=== PATIENT | female | born 1950 | race African-American/Black ===

== ENCOUNTER → 2016-06-30 | Day surgery (SDC) | payer OTHER ==
[~2016-06-30] VITALS: Ht 167.6 cm; Wt 86.2 kg
[~2016-06-30] MED LIST: ALEVE220 MG PO; Depo-Medrol 80mg Vial IARTIC ONE
--- NOTE | 2016-06-30 08:49 | Short Stay Surgery H&P ---
History of Present Illness History of Present Illness Chief Complaint Lower back pain. HPI Sarah Souza is a 66 year old female who was admitted on for Lumbosacral Spondylosis. Patient History Allergies: Coded Allergies: No Known Allergies (Unverified , 06/30/16) PAST MEDICAL HISTORY: (1) Lumbosacral spondylosis Past Surgeries: Social History: Patient History Narrative The patient was involved in a slip and fall accident in August of 2012 and has had chronic pain ever since. She has failed conservative treatment such as physical therapy and medication. She is here for her first diagnostic facet injections. Review of Systems Cardiovascular: Denies: CABG, CAD - stable, CHF, [place], angina, dysrhythmia, hypertension, no symptoms, other, peripheral vascular disease, rheumatic heart disease, see HPI, source of infx - skin, source of infx-indw cath, source of infx-prosthesis, valvular disease Respiratory: Denies: COPD, CPAP, URI, asthma, chronic bronchitis, home 02, no symptoms, other, pneumonia, see HPI, sleep apnea, tuberculosis Skeletal: Reports: osteroarthritis, spinal disc disease, trauma Gastrointestinal: Denies: gastro esophageal reflux disease, hepatitis A,B,C, hiatal hernia, jaundice, no symptoms, obesity, other, peptic ulcer disease, see HPI Genitourinary: Denies: BPH, UTI, dialysis, endstage renal disease, no symptoms , other, renal insufficiency, see HPI, urinary retention Neurologic: Denies: neuro muscular disease, neuropathy, no symptoms, other, see HPI, seizure, stroke/TIA Endocrine: Denies: diabetes - type 1, diabetes - type 2, no symptoms, other, post menopausal, see HPI, thyroid Hematologic: Denies: anemia, coagulopathy, no symptoms, other, prior transfusion, see HPI Physical Exam Skin: normal HENT: abnormal Heart: normal Lungs: normal Abdomen: normal Extremities: abnormal Genitourinary: normal Plan Plan of Care Right L4-5 and L5-S1 intra articular facet injections under fluoroscopic guidance. Preop Interventions Rest, heat, ice, anti inflammatory medication, rehab, pain medication, surgery, physical therapy. Summary of Findings Lumbosacral spondylosis Final Diagnosis: (1) Lumbosacral spondylosis Attestation Are the patient's medical conditions optimized for surgery? Attestation Response: yes TARIK THOMPSON M.D. Jun 30, 2016 08:49
--- NOTE | 2016-06-30 08:52 | Pre-Procedure Note/Attestation ---
Pre-Procedure Note/Attestation Complete Prior to Procedure Planned Procedure: left Procedure Narrative: L4-5 and L5-S1 intra articular facet injections under fluoroscopic guidance. Indications for Procedure Pre-Operative Diagnosis: lumbosacral spondylosis. Attestation I attest that I discussed the nature of the procedure; its benefits; risks and complications; and alternatives (and the risks and benefits of such alternatives ), prior to the procedure, with the patient (or the patient's legal sales representative electric service). I attest that, if there was a reasonable possibility of needing a blood transfusion, the patient (or the patient's legal sales representative electric service) was given the [facility] standardized written summary, pursuant to the Marcos [place]ude Blood Safety Act ([place] Health and Safety Code # 1645, as amended). I attest that I re-evaluated the patient just prior to the surgery and that there has been no change in the patient's H&P, except as documented below: TARIK THOMPSON M.D. Jun 30, 2016 08:52
[2016-06-30 09:03] VITALS: BP 142/87
[2016-06-30 09:25] VITALS: BP 149/95
--- NOTE | 2016-06-30 10:26 | Brief Operative Note ---
Immediate Post Operative Note Operative Note Chief Complaint: right lower back pain Pre-op Diagnosis: lumbosacral spondylosis. Procedure: Right L4-L5 and L5-S1 intra articular facet injections under fluoroscopic guidance. Post-op Diagnosis: same Post-op Diagnosis: same as pre-op Findings: consistent w/pre-op dx studies Surgeon: Tarik Thompson MD Sr. Vendor Management Associate: none Additional Surgeons: none Anesthesiologist: none Anesthesia: local Specimen: none Complications: none Condition: stable Fluids: none Estimated Blood Loss: none Drains: none Packing: none Tourniquet time: 0 - min Implant(s) used?: No TARIK THOMPSON M.D. Jun 30, 2016 10:25
--- NOTE | 2016-06-30 10:30 | Discharge Summary ---
Discharge Summary Hospital Course Date of Admission 06/30/2016 Date of Discharge 06/30/2016 Admitting Diagnosis lumbosacral spondylosis Reason for Hospitalization: short stay HPI Sarah Souza is a 66 year old female who was admitted on for Lumbosacral Spondylosis Consultations none Procedures Right L4-L5 and L5-S1 intra articular facet injections Hospital Course short stay Discharge Condition Upon Discharge: stable Discharge Disposition Patient was discharged to home. Discharge Diagnoses: (1) Lumbosacral spondylosis Discharge Instructions Discharge Instructions Follow up with: Dr. Thompson Diet: regular Activity: okay to shower For Surgical Patients Dressing Care: may change May shower: Yes Contact your physician for: bleeding, pain, tenderness, redness, swelling, yellowish discharge in the op. site TARIK THOMPSON M.D. Jun 30, 2016 10:30
--- NOTE | 2016-07-06 14:35 | Operative Note - PDOC ---
Operative Note Operative Note Date of Operation/Procedure: Jun 30, 2016 Chief Complaint: right lower back pain Pre-op Diagnosis: lumbosacral spondylosis. Procedure: Right L4-L5 and L5-S1 intra articular facet injections under fluoroscopic guidance. Post-op Diagnosis: same Post-op Diagnosis: same as pre-op Operative Findings: consistent w/pre-op dx studies Surgeon: Tarik Thompson MD Tap Builder: none Additional Surgeons: none Anesthesiologist: none Anesthesia: local Specimen: none Complications: none Condition: stable Fluids: none Estimated Blood Loss: none Drains: none Packing: none Tourniquet time: 0 - min Implant(s) used?: No Indications for Procedure The patient was involved in a slip and fall accident, which required emergency surgery. She has had chronic neck and lower back pain since and has failed conservative treatment on her lower back. She is complaining of right lower back pain and is here for her first set of facet injections of the right L4-L5 and L5-S1 joints. Description of Procedure The patient was seen and identified in the preoperative area. Risks, benefits, complications, and alternatives were discussed with the patient. The patient agreed to proceed with the procedure and signed the consent. The patient was placed in the prone position, and lumbosacral area was prepped with betadine and draped in the usual sterile fashion. Critical pause was taken. Using right oblique fluoroscopy, the right L4-L5 and L5-S1 facet joints were identified, and skin and deeper tissues were anesthetized with 1% lidocaine. We used 25- gauge 3.5-inch spinal needles for the procedure. The first needle was guided intraarticularly by fluoroscopy to the L4-L5 joint. The second needle was guided intraarticularly by fluoroscopy to the L5-S1 joint. Tip position was confirmed on lateral fluoroscopy. After negative aspiration of CSF and blood with no paresthesias, 0.5mL of Isoview was injected illustrating excellent arthrogram. Again after negative aspiration of CSF and blood with no paresthesias, 1 mL of a block solution was injected. Block solution contained 80 mg of Depo-Medrol and 1 mL of 1% preservative-free lidocaine.The needles were removed, skin was cleansed, and bandages were applied. The patient tolerated the procedure well without complications, and was discharged from recovery room after meeting discharge. Follow up: Post procedure VAS was /10. Facet loading was negative. The patient will follow up in one week. TARIK THOMPSON M.D. Jul 06, 2016 14:35
== END | disposition home or self-care (01) ==
LOC: SUR 08:23
DX: M47.897 Other spondylosis, lumbosacral region (principal); M19.90 Unspecified osteoarthritis, unspecified site
CPT/HCPCS: 64493; 64494; J1040; Q9967; 64483; 64484

== ENCOUNTER → 2016-09-22 | Day surgery (SDC) | payer OTHER ==
[~2016-09-22] VITALS: Ht 170.2 cm; Wt 86.6 kg
[2016-09-22 08:52] VITALS: BP 125/70
--- NOTE | 2016-09-22 09:17 | Short Stay Surgery H&P ---
History of Present Illness History of Present Illness Chief Complaint Right lower back pain HPI Sarah Souza is a 66 year old female who was admitted on for Lumbosacral Spondylosis Patient History Allergies: Coded Allergies: No Known Allergies (Unverified , 06/30/16) PAST MEDICAL HISTORY: (1) Lumbosacral spondylosis Past Surgeries: Social History: Patient History Narrative DOI 09/17/2012 Slip and fall at [employer]. She has had surgery and multiple therapy sessions. She also had a set of facet injections which helped reduce her pain by a significant amount and improve her function. Medication History Scheduled PRN Naproxen Sodium (Aleve), 220 MG PO Q12HR PRN for For Pain, (Reported) Review of Systems Cardiovascular: Denies: CABG, CAD - stable, CHF, [place], angina, dysrhythmia, hypertension, no symptoms, other, peripheral vascular disease, rheumatic heart disease, see HPI, source of infx - skin, source of infx-indw cath, source of infx-prosthesis, valvular disease Respiratory: Denies: COPD, CPAP, URI, asthma, chronic bronchitis, home 02, no symptoms, other, pneumonia, see HPI, sleep apnea, tuberculosis Skeletal: Reports: spinal disc disease, trauma Gastrointestinal: Denies: gastro esophageal reflux disease, hepatitis A,B,C, hiatal hernia, jaundice, no symptoms, obesity, other, peptic ulcer disease, see HPI Genitourinary: Denies: BPH, UTI, dialysis, endstage renal disease, no symptoms , other, renal insufficiency, see HPI, urinary retention Neurologic: Denies: neuro muscular disease, neuropathy, no symptoms, other, see HPI, seizure, stroke/TIA Endocrine: Denies: diabetes - type 1, diabetes - type 2, no symptoms, other, post menopausal, see HPI, thyroid Hematologic: Denies: anemia, coagulopathy, no symptoms, other, prior transfusion, see HPI Physical Exam Vital Signs Last Vital Signs Date Time Temp Pulse Resp B/P Pulse Ox O2 Delivery O2 Flow Rate FiO2 09/22/16 08:52 97.9 64 18 125/70 99 Room Air Skin: normal HENT: normal Heart: normal Lungs: normal Abdomen: normal Extremities: normal Genitourinary: normal Plan Plan of Care Right L4-L5 and L5-S1 intra-articular facet injection under fluoroscopic guidance. Preop Interventions rest, heat, ice, physical therapy, surgery, facet injections. Summary of Findings lumbosacral spondylosis Final Diagnosis: (1) Lumbosacral spondylosis Attestation Are the patient's medical conditions optimized for surgery? Attestation Response: yes TARIK THOMPSON M.D. Sep 22, 2016 09:17
--- NOTE | 2016-09-22 09:18 | Pre-Procedure Note/Attestation ---
Pre-Procedure Note/Attestation Complete Prior to Procedure Planned Procedure: right Procedure Narrative: L4-L5 and L5-S1 intra articular facet injections Indications for Procedure Pre-Operative Diagnosis: Lumbosacral spondylosis Attestation I attest that I discussed the nature of the procedure; its benefits; risks and complications; and alternatives (and the risks and benefits of such alternatives ), prior to the procedure, with the patient (or the patient's legal client services representative). I attest that, if there was a reasonable possibility of needing a blood transfusion, the patient (or the patient's legal client services representative) was given the [facility] standardized written summary, pursuant to the Marcos [place] Blood Safety Act ([place] Health and Safety Code # 1645, as amended). I attest that I re-evaluated the patient just prior to the surgery and that there has been no change in the patient's H&P, except as documented below: TARIK THOMPSON M.D. Sep 22, 2016 09:18
[2016-09-22 10:05] VITALS: BP 130/72
--- NOTE | 2016-09-22 10:08 | Brief Operative Note ---
Immediate Post Operative Note Operative Note Chief Complaint: Right lower back pain Pre-op Diagnosis: Lumbosacral spondylosis Procedure: Left L4-L5 and L5-S1 intra articular facet injections under fluoroscopic guidance. Post-op Diagnosis: lumbosacral spondylosis Post-op Diagnosis: same as pre-op Findings: consistent w/pre-op dx studies Surgeon: Tarik Thompson MD Sanitation Lead: none Additional Surgeons: none Anesthesiologist: none Anesthesia: local Specimen: none Complications: none Condition: stable Fluids: none Estimated Blood Loss: none Drains: none Packing: none Tourniquet time: 0 Implant(s) used?: No TARIK THOMPSON M.D. Sep 22, 2016 10:08
--- NOTE | 2016-09-22 10:10 | Discharge Summary ---
Discharge Summary Hospital Course Date of Admission 09/22/16 Date of Discharge 09/22/16 Admitting Diagnosis lumbosacral spondylosis Reason for Hospitalization: short stay HPI Sarah Souza is a 66 year old female who was admitted on for Lumbosacral Spondylosis Consultations none Procedures Right L4-L5 and L5-S1 intra articular facet injection under fluoroscopic guidance. Hospital Course short stay Discharge Condition Upon Discharge: stable Discharge Disposition Patient was discharged to home. Discharge Diagnoses: (1) Lumbosacral spondylosis Discharge Instructions Discharge Instructions Follow up with: Dr. Tarik Thompson Diet: regular Activity: okay to shower For Surgical Patients Dressing Care: may change May shower: Yes Contact your physician for: bleeding, pain, tenderness, redness, swelling, yellowish discharge in the op. site TARIK THOMPSON M.D. Sep 22, 2016 10:10
--- NOTE | 2016-09-22 17:58 | Operative Note - PDOC ---
Operative Note Operative Note Date of Operation/Procedure: Sep 22, 2016 Chief Complaint: Right lower back pain Pre-op Diagnosis: Lumbosacral spondylosis Procedure: Right L4-L5 and L5-S1 intra articular facet injections under fluoroscopic guidance. Post-op Diagnosis: lumbosacral spondylosis Post-op Diagnosis: same as pre-op Operative Findings: consistent w/pre-op dx studies Surgeon: Tarik Thompson MD Behavioral Health Worker: none Additional Surgeons: none Anesthesiologist: none Anesthesia: local Specimen: none Complications: none Condition: stable Fluids: none Estimated Blood Loss: none Drains: none Packing: none Tourniquet time: 0 Implant(s) used?: No Indications for Procedure DOI 09/17/2012. The patient was involved in a slip and fall accident requiring emergency surgery. She has had right lower back pain since and underwent her first set of facet injections with a decrease in her overall pain. She is here for her second set of facet injections. Description of Procedure The patient was seen and identified in the preoperative area. Risks, benefits, complications, and alternatives were discussed with the patient. The patient agreed to proceed with the procedure and signed the consent. The patient was placed in the prone position, and lumbosacral area was prepped with betadine and draped in the usual sterile fashion. Critical pause was taken. Using right oblique fluoroscopy, the right L4-L5 and L5-S1 facet joints were identified, and skin and deeper tissues were anesthetized with 1% lidocaine. We used 25-gauge 3.5-inch spinal needles for the procedure. The first needle was guided intra-articularly by fluoroscopy to the L4-L5 joint. The second needle was guided intra-articularly by fluoroscopy to the L5-S1 joint. Tip position was confirmed on lateral fluoroscopy. After negative aspiration of CSF and blood with no paresthesias, 1 mL of Isoview M300 was injected illustrating excellent arthrogram. Again after negative aspiration of CSF and blood with no paresthesias, 1 mL of a block solution was injected. Block solution contained 80 mg of Depo-Medrol and 1 mL of 1 % preservative-free lidocaine. The needles were removed, skin was cleansed, and bandages were applied. The patient tolerated the procedure well without complications, and was discharged from recovery room after meeting discharge. Follow up: Post procedure VAS was 0/10. Facet loading was negative. The patient will follow up in one week. A pain diary was given to the patient. TARIK THOMPSON M.D. Sep 22, 2016 17:58
== END | disposition home or self-care (01) ==
LOC: SDS 08:16
DX: M47.897 Other spondylosis, lumbosacral region (principal)
CPT/HCPCS: 64493; 64494; J1040; Q9967; 64483; 64484

== ENCOUNTER 2017-04-27 05:35 | Inpatient (IN) | payer OTHER ==
[2017-04-27] VITALS (12 sets, daily range): BP systolic 98–141; BP diastolic 60–77
[~2017-04-27] VITALS: Ht 167.6 cm; Wt 89.4 kg
[~2017-04-27 05:35] MED LIST changes: -Depo-Medrol 80mg Vial IARTIC ONE
[2017-04-27] MEDS ORDERED: Pantoprazole Inj IVP ONE (06:00)
[2017-04-27] MEDS ORDERED: Vancomycin 1 GM in D5W 275 ML IVPB ONE (06:00)
[2017-04-27] MEDS ORDERED: Thrombin 5000 units TOPIC ONE ×2 (07:09→11:08)
[2017-04-27] MEDS ORDERED: Bacitracin Oint 15gm Tube TOPIC ONE (07:10)
[2017-04-27] MEDS ORDERED: Bupivacaine w/Epi 0.75% 30ml Vial INJ ONE (07:10)
[2017-04-27] MEDS ORDERED: Thrombin 5000 units spray kit TOPIC ONE (07:10)
[2017-04-27] MEDS ORDERED: Gelfoam Absorbable 1gm powder pkt TOPIC ONE (07:10)
[2017-04-27] MEDS ORDERED: Bacitracin 50000 Units Vial ONE (07:10)
[2017-04-27] MEDS ORDERED: Vancomycin 1gm inj IVPB ONE (07:18)
[2017-04-27] MEDS ORDERED: Succinylcholine 20mg/ml 10ml vial ONE (07:30)
[2017-04-27] MEDS ORDERED: LR 1000ml ONE (07:30)
[2017-04-27] MEDS ORDERED: Zemuron 50mg/5ml Inj IV ONE (07:30)
[2017-04-27] MEDS ORDERED: Propofol 200mg/20ml IV ONE ×2 (07:30→09:38)
[2017-04-27] MEDS ORDERED: Midazolam 2mg/2ml Inj ONE (07:30)
[2017-04-27] MEDS ORDERED: NS Irrig 1000ml ONE (07:30)
[2017-04-27] MEDS ORDERED: Neostigmine 1mg/ml 10ml Inj ONE (07:30)
[2017-04-27] MEDS ORDERED: Dexamethasone 4mg/ml vial ONE (07:30)
[2017-04-27] MEDS ORDERED: Glycopyrrolate 0.2mg/ml 1ml Vial ONE (07:30)
[2017-04-27] MEDS ORDERED: fentaNYL 100 mcg/2 mL IV ONE (07:30)
[2017-04-27] MEDS ORDERED: Ketorolac 30mg Inj ONE (07:30)
[2017-04-27] MEDS ORDERED: Morphine Sulfate 10mg/ml Inj ONE (07:30)
[2017-04-27] MEDS ORDERED: Sterile Water Irrig 1000ml IRRIG ONE (07:30)
--- NOTE | 2017-04-27 07:45 | Pre-Procedure Note/Attestation ---
Pre-Procedure Note/Attestation Complete Prior to Procedure Planned Procedure: bilateral Procedure Narrative: Posterior lumbar decompressive surgery, bilateral at L3-4 and L4-5 and Right L5- S1, with instrumented interspinous fusion at L4-5 and posterolateral fusion with allograft, autograft and iliac crest bone marrow aspirate at L4-5 Attestation I attest that I discussed the nature of the procedure; its benefits; risks and complications; and alternatives (and the risks and benefits of such alternatives ), prior to the procedure, with the patient (or the patient's legal outside medical sales representative). I attest that, if there was a reasonable possibility of needing a blood transfusion, the patient (or the patient's legal outside medical sales representative) was given the [place] [facility] standardized written summary, pursuant to the Marcos [place] Blood Safety Act ([place] Health and Safety Code # 1645, as amended). I attest that I re-evaluated the patient just prior to the surgery and that there has been no change in the patient's H&P, except as documented below: TOM VILLAREAL Apr 27, 2017 07:45
--- NOTE | 2017-04-27 07:45 | Pre-Procedure Note/Attestation ---
Pre-Procedure Note/Attestation Complete Prior to Procedure Planned Procedure: bilateral Procedure Narrative: Posterior lumbar decompressive surgery, bilateral at L3-4 and L4-5 and Right L5- S1, with instrumented interspinous fusion at L4-5 and posterolateral fusion with allograft, autograft and iliac crest bone marrow aspirate at L4-5 Attestation I attest that I discussed the nature of the procedure; its benefits; risks and complications; and alternatives (and the risks and benefits of such alternatives ), prior to the procedure, with the patient (or the patient's legal loan representative). I attest that, if there was a reasonable possibility of needing a blood transfusion, the patient (or the patient's legal loan representative) was given the [place] [facility] standardized written summary, pursuant to the Marcos [place] Blood Safety Act ([place] Health and Safety Code # 1645, as amended). I attest that I re-evaluated the patient just prior to the surgery and that there has been no change in the patient's H&P, except as documented below: TOM VILLAREAL Apr 27, 2017 07:45
--- NOTE | 2017-04-27 07:45 | Pre-Procedure Note/Attestation ---
Pre-Procedure Note/Attestation Complete Prior to Procedure Planned Procedure: bilateral Procedure Narrative: Posterior lumbar decompressive surgery, bilateral at L3-4 and L4-5 and Right L5- S1, with instrumented interspinous fusion at L4-5 and posterolateral fusion with allograft, autograft and iliac crest bone marrow aspirate at L4-5 Attestation I attest that I discussed the nature of the procedure; its benefits; risks and complications; and alternatives (and the risks and benefits of such alternatives ), prior to the procedure, with the patient (or the patient's legal retail representative). I attest that, if there was a reasonable possibility of needing a blood transfusion, the patient (or the patient's legal retail representative) was given the [place] [facility] standardized written summary, pursuant to the Marcos [place] Blood Safety Act ([place] Health and Safety Code # 1645, as amended). I attest that I re-evaluated the patient just prior to the surgery and that there has been no change in the patient's H&P, except as documented below: TOM VILLAREAL Apr 27, 2017 07:45
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
[2017-04-27] MEDS ORDERED: LR 1000ml 1,000 ML IVLG SCH (08:47)
[2017-04-27] MEDS ORDERED: Meperidine 50mg/ml Inj(FOR RIGORS ONLY) IV PRN (09:00)
[2017-04-27] MEDS ORDERED: Midazolam 2mg/2ml Inj IVP PRN (09:00)
[2017-04-27] MEDS ORDERED: Ketorolac 30mg Inj IV PRN (09:00)
[2017-04-27] MEDS ORDERED: DiphenhydrAMINE 50mg/ml Inj IVP PRN (09:00)
[2017-04-27] MEDS ORDERED: Hydromorphone 0.5mg/0.5ml inj IVP PRN (09:00)
[2017-04-27] MEDS ORDERED: Propofol 1,000mg/ 100ml btl IV ONE (09:00)
[2017-04-27] MEDS ORDERED: Acetaminophen (Non formulary) 100 ML IV ONE (09:00)
--- NOTE | 2017-04-27 13:41 | Immediate Post-Op Evaluation ---
Immediate Post-Op Evalulation Immediate Post-Op Evalulation Procedure: L3-4 L4-5 L5-S1 laminotomy with decompression and interbody fusion Date of Evaluation: Apr 27, 2017 Time of Evaluation: 13:39 IV Fluids: 1500 Blood Products: none Estimated Blood Loss: 150 Urinary Output: 350 Blood Pressure Systolic: 118 Blood Pressure Diastolic: 65 Pulse Rate: 74 Respiratory Rate: 22 O2 Sat by Pulse Oximetry: 99 Temperature (Fahrenheit): 98.5 Pain Score (1-10): 2 Nausea: No Vomiting: No Complications none Patient Status: reacts, patent, extubated, none Hydration Status: adequate MATTIE AYON M.D. Apr 27, 2017 13:41
--- NOTE | 2017-04-27 14:00 | Brief Operative Note ---
Immediate Post Operative Note Operative Note Chief Complaint: low back pain, difficulty ambulation, bilateral leg pain right >Left Pre-op Diagnosis: 1. s/p fall with spinal cord injury 2. s/d ACDF 3. Post-traumatic intractable low back pain 4. sever central stenosis at L3-4, L4-5 and R L5-S1 5. Levoscoliosis and Grade I L4 on L5 spondylolisthesis Post-op Diagnosis: same as pre-op Findings: consistent w/pre-op dx studies Surgeon: Janusz Hargrove MD Professional Nurse: Romie Hlolins MD Anesthesiologist: Dr. Chawla Anesthesia: general Specimen: none Complications: none Condition: stable Fluids: 1.2 l crystalloids Estimated Blood Loss: volume - 150 cc Drains: hemovac Implant(s) used?: Yes - NICOLE Null Grafton MOBIN, FARDAD Apr 27, 2017 14:00
[2017-04-27] MEDS ORDERED: Norco 7.5mg/325mg tab ORAL PRN (14:30)
[2017-04-27] MEDS ORDERED: Acetaminophen 650 MG SUPP RECTAL PRN (14:30)
[2017-04-27] MEDS ORDERED: Norco 5mg/325mg tab ORAL PRN (14:30)
[2017-04-27] MEDS ORDERED: Cyclobenzaprine 10mg Tab ORAL PRN (14:30)
[2017-04-27] MEDS ORDERED: Milk of Magnesia 30ml Ud ORAL PRN (14:30)
--- NOTE | 2017-04-27 15:56 | Diagnostic Imaging Report ---
Indication: PAIN, intraoperative Technique: Intraoperative images Comparison: Findings: Localizer images demonstrate clips posterior to what are presumably L4, L5, and S1. Subsequent images document placement of and interspinous spacer between L4 and L5 spinous processes. No the opaque foreign body demonstrated Impression: Intraoperative imaging, as described No radiopaque foreign body. Per discussion with referring physician, the missing foreign body was found outside the patient
[2017-04-27] MEDS: Docusate 100mg cap ORAL SCH (17:44)
[2017-04-27] MEDS: Pericolace tab ORAL SCH (17:44)
[2017-04-27] MEDS: D5 1/2NS w/KCl 20mEq 1,000 ML IV SCH (17:44)
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
[2017-04-27] MEDS: Neosporin Oint 15gm TOPIC SCH (20:00)
[2017-04-27] MEDS ORDERED: Neosporin Oint 15gm TOPIC SCH (20:30)
[2017-04-28 00:22] VITALS: BP 117/61
[2017-04-28] MEDS: HYDROmorphone 1mg/ml Carpuject IVP PRN ×3 (01:13→17:04)
[2017-04-28 04:30] VITALS: BP 120/80
[2017-04-28] MEDS: Neosporin Oint 15gm TOPIC SCH ×2 (06:48→17:01)
[2017-04-28] MEDS: D5 1/2NS w/KCl 20mEq 1,000 ML IV SCH ×2 (06:50→12:00)
[2017-04-28 06:54] LABS: BASOPHILS % (AUTO) 0.3 % (0.0-2.0); EOSINOPHILS % (AUTO) 0.1 % (0.0-3.0); HEMATOCRIT 32.1 % (37.0-47.0); HEMOGLOBIN 10.2 G/DL (12.0-16.0); LYMPHOCYTES % (AUTO) 22.5 % (20.0-45.0); MEAN CORPUSCULAR VOLUME 90 FL (80-99); MONOCYTES % (AUTO) 8.7 % (1.0-10.0); NEUTROPHILS % (AUTO) 68.4 % (45.0-75.0); PLATELET COUNT 153 K/UL (150-450); RED BLOOD COUNT 3.55 M/UL (4.20-5.40); RED CELL DISTRIBUTION WIDTH 12.4 % (11.6-14.8); WHITE BLOOD COUNT 13.7 K/UL (4.8-10.8)
[2017-04-28 07:16] LABS: ANION GAP 8 mmol/L (5-15); BLOOD UREA NITROGEN 11 mg/dL (7-18); CARBON DIOXIDE 27 MMOL/L (21-32); CHLORIDE 107 MMOL/L (98-107); CREATININE 0.9 MG/DL (0.55-1.30); POTASSIUM 3.8 MMOL/L (3.5-5.1); SODIUM 142 MMOL/L (136-145)
[2017-04-28 08:00] VITALS: BP 128/68
[2017-04-28] MEDS: Pericolace tab ORAL SCH ×2 (08:58→17:01)
[2017-04-28] MEDS: Docusate 100mg cap ORAL SCH ×2 (08:58→17:01)
[2017-04-28 16:00] VITALS: BP 120/61
--- NOTE | 2017-04-28 18:19 | General Progress Note ---
Progress Note Progress Note Neurosuregry Post-op Day #1 S/ Ambulated with PT in the room. No postural headaches.voided. Passing gas. No leg pain. Incisional pain. O/ Vs: Last 24 Hour Vital Signs Date Time Temp Pulse Resp B/P (MAP) Pulse Ox O2 Delivery O2 Flow Rate FiO2 04/28/17 16:00 99.0 75 18 120/61 95 Room Air 04/28/17 10:44 98.3 04/28/17 08:00 98.3 75 19 128/68 Room Air 04/28/17 04:30 98.2 70 17 120/80 95 Room Air 04/28/17 00:22 98.9 68 18 117/61 96 Room Air 04/27/17 20:00 98.7 76 19 131/75 98 Nasal Cannula 2.0 On exam, Incision completely dry, without fluctuance or erythema. HV drain removed and new Dressing applied. lower extremity strength 5/5. No edema sensation normal. Family at bedside Laboratory Tests Test 04/28/17 05:15 White Blood Count 13.7 K/UL (4.8-10.8) H Red Blood Count 3.55 M/UL (4.20-5.40) L Hemoglobin 10.2 G/DL (12.0-16.0) L Hematocrit 32.1 % (37.0-47.0) L Mean Corpuscular Volume 90 FL (80-99) Mean Corpuscular Hemoglobin 28.8 PG (27.0-31.0) Mean Corpuscular Hemoglobin Concent 31.9 G/DL (32.0-36.0) L Red Cell Distribution Width 12.4 % (11.6-14.8) Platelet Count 153 K/UL (150-450) Mean Platelet Volume 7.7 FL (6.5-10.1) Neutrophils (%) (Auto) 68.4 % (45.0-75.0) Lymphocytes (%) (Auto) 22.5 % (20.0-45.0) Monocytes (%) (Auto) 8.7 % (1.0-10.0) Eosinophils (%) (Auto) 0.1 % (0.0-3.0) Basophils (%) (Auto) 0.3 % (0.0-2.0) Sodium Level 142 MMOL/L (136-145) Potassium Level 3.8 MMOL/L (3.5-5.1) Chloride Level 107 MMOL/L (98-107) Carbon Dioxide Level 27 MMOL/L (21-32) Anion Gap 8 mmol/L (5-15) Blood Urea Nitrogen 11 mg/dL (7-18) Creatinine 0.9 MG/DL (0.55-1.30) Estimat Glomerular Filtration Rate > 60 mL/min (>60) Glucose Level 124 MG/DL (74-106) H Calcium Level 8.0 MG/DL (8.5-10.1) L doing well ambulate more with PT in am Brace is at bedside. Will have pt fitted in am with PT. D/c planning D/c instructions reviewed with pt, her family and nursing. TOM VILLAREAL Apr 28, 2017 18:19
[2017-04-28 20:00] VITALS: BP 141/86
[2017-04-29] VITALS: BP 130/56
[2017-04-29 04:00] VITALS: BP 125/67
[2017-04-29 08:00] VITALS: BP 109/52
[2017-04-29] MEDS: Pericolace tab ORAL SCH (09:12)
[2017-04-29] MEDS: Docusate 100mg cap ORAL SCH (09:12)
[2017-04-29] MEDS: Neosporin Oint 15gm TOPIC SCH (09:12)
[2017-04-29 12:00] VITALS: BP 130/79
[2017-04-29] MEDS: D5 1/2NS w/KCl 20mEq 1,000 ML IV SCH (12:00)
[2017-04-29] MEDS ORDERED: Tubing IV Secondary IV ONE (14:26)
--- NOTE | 2017-05-01 13:58 | Discharge Summary ---
Discharge Summary Hospital Course Date of Admission Apr 27, 2017 at 05:35 Date of Discharge Apr 29, 2017 at 14:27 Admitting Diagnosis lumbar stenosis , radiculopathy Reason for Hospitalization: elective surgery HPI Sarah Souza is a 67 year old female who was admitted on Apr 27, 2017 at 05:35 for low back pain, difficulty ambulation, bilateral leg pain right >Left with diagnosis Lumbar Stenosis,Radiculopathy Procedures s/p 04/[address]argrove and Gurvinder 1. Posterior lumbar decompressive surgery, hemilaminectomy right L3 level with central and bilateral decompression. 2. Bilateral L4 hemilaminotomy, medial facetectomy and foraminotomy with ligamentectomy and central decompression. 3. Extended hemilaminotomy/hemilaminectomy approach right L4 level for repair of cerebrospinal fluid leak with use of DuraGen graft and epidural fat graft and Tisseel. 4. Right L4 hemilaminotomy, medial facetectomy and foraminotomy with central ligamentectomy and lateral recess decompression. 5. Insertion of biomechanical device, PEEK. 6. Interspinous fusion using Lanx device 12 mm with use of allograft, autograft and bone marrow aspirate concentrate. 7. Posterolateral arthrodesis L4-L5 level with use of allograft, autograft and bone marrow aspirate bilaterally. 8. Intraoperative use, interpretation and supervision of fluoroscopy for localization of spine and insertion of lumbar instrumentation. 9. Intraoperative neuromonitoring using somatosensory evoked potentials and dermatomal evoked potentials. 10. Intraoperative microdissection using operative microscope. 11. Plastic surgical closure of 12 centimeter lumbar wound. 12. Placement of an epidural Hemovac drain. 13. Modifier 22 due to the difficulty of the case. Hospital Course s/p surgery course of recovery uneventful initially IVF pain management OT eval and Rx neurovascular intact LE strength 5/5 Hemovac discontinue incision C/D/I IS at the bedside, encouraged to use SCD pain controlled, tolerated diet, ambulated, incision intact, dressing C/D/I , voided, n/v intact surgeon cleared for dc fup with surgeon as outpatient as recommended by surgeon DISCHARGE DIAGNOSIS postop diagnosis 1. Status post fall with spinal cord injury. 2. Status post anterior cervical diskectomy, fusion, stabilization C4 through C6, history of quadriparesis. 3. Intractable posttraumatic mechanical axial back pain, difficulty with ambulation, neurogenic claudication and severe central canal stenosis at L3-L4 and L4-L5 level and right L5-S1. 4. Lumbar levoscoliosis. 5. Lack of improvement from conservative measures and interventional pain injections. surgery 1.s/p Posterior lumbar decompression Bilateral L3-4, Bilateral L4-5, R L5-S1 2. Repair of CSF leak at L4-5 thru extended hemilaminectomy with epidural fat graft and Duragen Discharge Condition Upon Discharge: stable Discharge Disposition Patient was discharged to Home (01) Discharge Diagnoses: Discharge Instructions Discharge Instructions Special Instructions I have been assigned to complete a D/C Summary on this account. I was not involved in the patient management Teresa Forrest NP ([place]) May 01, 2017 13:58
== END 2017-04-29 14:27 | disposition home or self-care (01) | DRG 460 ==
LOC: SDSOVERFLO 05:35 → 3E 15:00
PROC: 0SG00AJ Fusion of Lumbar Vertebral Joint with Interbody Fusion Device, Posterior Approach, Anterior Column, Open Approach (ICD-10-PCS; principal; 2017-04-27 07:30)
PROC: 00NY0ZZ Release Lumbar Spinal Cord, Open Approach (ICD-10-PCS; principal; 2017-04-27 07:30)
PROC: 00UT0JZ Supplement Spinal Meninges with Synthetic Substitute, Open Approach (ICD-10-PCS; principal; 2017-04-27 07:30)
PROC: 01NB0ZZ Release Lumbar Nerve, Open Approach (ICD-10-PCS; principal; 2017-04-27 07:30)
DX: M48.062 Spinal stenosis, lumbar region with neurogenic claudication (principal); G96.11 Dural tear; M41.86 Other forms of scoliosis, lumbar region; M48.07 Spinal stenosis, lumbosacral region; M43.16 Spondylolisthesis, lumbar region; S34.109S Unspecified injury to unspecified level of lumbar spinal cord, sequela; R26.2 Difficulty in walking, not elsewhere classified; W19.XXXS Unspecified fall, sequela; M25.50 Pain in unspecified joint
CPT/HCPCS: 36415; 72020; 76001; 80048; 85025; 86850; 86900; 86901; 87081; 94003; 94150; C9399; J1580; J2250; J2405; J2710